=== PATIENT | female | born 1950 | race Hispanic/Latino ===

== ENCOUNTER → 2024-07-27 | Outpatient (CLI) | payer OTHER, MEDICARE ==
[~2024-07-27] MED LIST: AEC81 PO; IOHEXOL 350 MG/ML 100ML INFUS..BTL IV ONE; LEVOTHYROXIN; LISI10TA24 PO
--- NOTE | 2024-07-27 11:48 | HMCIMG ---
CT CARDIAC ANGIO W/CONT. CCTA HISTORY: Essential hypertension COMPARISON: None TECHNIQUE: Multiple sequential axial images of the chest were obtained along with the CT angiogram of the chest study. Patient was given 100 cc of Omnipaque through intravenous route. FINDINGS: There is no evidence of pulmonary nodule or parenchymal disease. No pleural effusion or pericardial effusion is seen. There is no evidence of pneumothorax. There are normal size mediastinal and hilar lymph nodes. The heart is not enlarged. Coronary arterial calcifications are seen. Degenerative changes of the thoracolumbar spine are present. IMPRESSION: 1. No evidence of pulmonary nodule or effusion is seen. Please see CT angiogram report of coronary arteries.
--- NOTE | 2024-07-28 18:51 | CARDIOLOGY ---
RAD REPORT: [facility] CT ANGIO RADIOLOGY REPORT: CORONARY CT ANGIOGRAPHY DATE: Jul 28, 2024 QUALITY: Excellent CLINICAL HISTORY AND INDICATION: [chest pain ] TECHNIQUE: After obtaining a preliminary safety and security manager image, contrast imaging performed on an [employer] [id number] scanner. A dedicated, limited window, coronary imaging protocol was used, with single breath-hold, retrospective ECG gating, and automated arrhythmia rejection. 100 cc of low osmolar contrast agent: Omnipaque 350 was delivered via a 18-gauge IV catheter in the right antecubital fossa, using a power injector and followed by 60 cc of normal saline bolus as a chaser. Collimated images were reformatted at 0.5 mm intervals, and sent to an offline independent workstation for interpretation, using 3D anatomic reconstructions: Curved multiplanar reconstructions, maximum intensity projections, and multiplanar imaging. No metoprolol was administered prior to scanning due to low baseline heart rate. 0.4 mg SL nitroglycerin was given. CORONARY ARTERY DESCRIPTIONS: The coronary arteries arise in normal position. Left main coronary artery: Normal caliber vessel that bifurcates into the LAD and LCx. There is calcified plaque in the distal left main with 20-30% stenosis. Left anterior descending coronary artery: Normal caliber vessel and gives rise to diagonal and septal branches. There is calcified plaque in the proximal LAD with 20-30% stenosis. Left circumflex coronary artery: Normal caliber, nondominant and gives rise to a large OM branch. There is calcified plaque in the proximal LCx with 20-30% stenosis. Right coronary artery: Large, dominant vessel giving rise to the PL and PDA branches. There is mixed calcified and noncalcified plaque in the proximal RCA with 30-40% stenosis. CAD-RADs: 2, mild non-obstructive CAD. Thoracic Aorta: Normal diameter. Marilou Vivas MD Cardiovascular Disease [facility] MARILOU VIVAS MD Jul 28, 2024 18:51
== END | disposition home or self-care (01) ==
LOC: RAH 09:10
PROVIDERS: ATTEND Internal Medicine
DX: R06.09 Other forms of dyspnea (principal); I10 Essential (primary) hypertension; I25.10 Atherosclerotic heart disease of native coronary artery without angina pectoris; M47.815 Spondylosis without myelopathy or radiculopathy, thoracolumbar region
CPT/HCPCS: 75574; Q9967

== ENCOUNTER → 2025-03-05 | Outpatient (CLI) | payer OTHER, MEDICARE ==
[~2025-03-05] MED LIST changes: -IOHEXOL 350 MG/ML 100ML INFUS..BTL IV ONE
--- NOTE | 2025-03-05 19:00 | HMCIMG ---
EXAM: XR Chest, 2 Views.CLINICAL HISTORY: Community acquired pneumonia. Unspecified laterality.COMPARISON: None provided.FINDINGS:LUNGS: Coarse interstitial bronchovascular markings seen. No consolidation.PLEURAL SPACES: No pleural effusion or pneumothorax.HEART: The heart size is normal. Uncoiling of arch of aorta noted. Aortic knuckle calcinosis is seen.BONES: No acute osseous abnormality. Degenerative changes are seen in visualized thoracic spine.IMPRESSION: * No acute cardiopulmonary disease seen. * Chronic coarse interstitial parenchymal markings. /[place]
== END | disposition home or self-care (01) ==
LOC: RAH 12:28
PROVIDERS: ATTEND Family Medicine
DX: J18.9 Pneumonia, unspecified organism (principal); E83.59 Other disorders of calcium metabolism; M47.814 Spondylosis without myelopathy or radiculopathy, thoracic region
CPT/HCPCS: 71046